=== PATIENT | female | born 1985 | race African-American/Black ===

== ENCOUNTER 2018-05-18 07:57 | Emergency (ER) | payer MEDICAID ==
[~2018-05-18] VITALS: Ht 154.9 cm; Wt 52.2 kg
[~2018-05-18 07:57] MED LIST: CYAN100T3 GT; HYDR2TAB35 PO; INFL100V IV; PRED20TA GT
--- NOTE | 2018-05-18 08:28 | NUR ---
initial contact with pt no distress - c/o irritation burning senstion colostomy bag - light bloody output small amount waiting for MD andrew
--- NOTE | 2018-05-18 08:58 | NUR ---
ED MD ready to see pt - but unable to find pt in room and anywhere in ED at this time
[2018-05-18 09:21] VITALS: BP 105/86
--- NOTE | 2018-05-18 09:23 | NUR ---
Pt eloped from ER after triage and prior to being seen
== END 2018-05-18 09:24 | disposition home or self-care (01) ==
LOC: ER 08:03
DX: Z53.21 Procedure and treatment not carried out due to patient leaving prior to being seen by health care provider (principal); Z93.3 Colostomy status; J45.909 Unspecified asthma, uncomplicated
CPT/HCPCS: A4606; Z7610

== ENCOUNTER 2022-03-06 11:47 | Emergency (ER) | payer MEDICAID, OTHER ==
[~2022-03-06] VITALS: Ht 154.9 cm; Wt 54.4 kg
[~2022-03-06 11:47] MED LIST changes: -CYAN100T3 GT; +CYAN100T44 GT
[2022-03-06 12:14] VITALS: BP 105/63
--- NOTE | 2022-03-06 12:22 | NUR ---
BIB SELF, REQUESTING NEED FOR A COLOSTOMY BAG, PT TO BE ASSESSED AND EVALUATED
== END 2022-03-06 12:29 | disposition home or self-care (01) ==
LOC: ER 11:47
DX: K94.03 Colostomy malfunction (principal); J45.909 Unspecified asthma, uncomplicated; Z88.2 Allergy status to sulfonamides; Z88.8 Allergy status to other drugs, medicaments and biological substances; Z79.899 Other long term (current) drug therapy

== ENCOUNTER 2022-04-11 15:40 | Inpatient (IN) | payer OTHER ==
[~2022-04-11] VITALS: Ht 160 cm; Wt 55.3 kg
--- NOTE | 2022-04-11 15:40 | NUR ---
BIB [facility], RUNNING AROUND NAKED IN A STREET, TOLD GILBERT THAT SHE NEED A COLOSTOMY BAG. PLACED ON BED, COOPERATIVE, RESTLESS.
[2022-04-11] MEDS ORDERED: OLANZAPINE 10 MG VIAL IM ONE ×3 (15:57→17:30)
[2022-04-11 16:31] LABS: BILIRUBIN,URINE 1+ (NEGATIVE); COLOR,URINE YELLOW (YELLOW); LEUKOCYTE ESTERASE ,URINE 1+ (NEGATIVE); NITRITE, URINE NEGATIVE (NEGATIVE); PH,URINE 5.5 (5.0-8.0); PROTEIN,URINE 2+ mg/dl (NEGATIVE); UGLUCOSE NEGATIVE (NEGATIVE); UROBILINOGEN,URINE 0.2 EU/dL (0.2)
[2022-04-11 16:32] LABS: BASOPHILS # (AUTO) 0.1 K/uL (0.0-0.2); BASOPHILS % (AUTO) 0.8 % (0.0-2.0); EOSINOPHILS % (AUTO) 0.5 % (0.0-6.0); LYMPHOCYTES # (AUTO) 1.5 K/uL (0.8-4.8); LYMPHOCYTES % (AUTO) 15.9 % (20.0-44.0); MEAN CORPUSCULAR HGB CONC 28 g/dl (31.0-36.0); MEAN CORPUSCULAR VOLUME 54 fL (82-100); MONOCYTES # (AUTO) 0.9 K/uL (0.1-1.30); NEUTROPHILS # (AUTO) 6.7 K/uL (1.8-8.9); NEUTROPHILS % (AUTO) 72.8 % (43.0-81.0); PLATELET COUNT (AUTO) 601 K/uL (150-450); RED BLOOD CELL COUNT(AUTO) 3.29 MIL/uL (4.0-5.2); WHITE BLOOD COUNT (AUTO) 9.2 K/uL (4.3-11.0)
[2022-04-11 16:34] LABS: HEMATOCRIT 18 % (33-45); HEMOGLOBIN 4.9 g/dL (11.5-14.8)
[2022-04-11 16:36] LABS: BACTERIA,URINE Few /HPF (None Seen); COARSE GRANULAR CASTS,URINE Few /LPF (None Seen); SQUAMOUS EPITHELIAL CELL,UR Few /HPF (None Seen)
[2022-04-11 16:53] LABS: ALANINE AMINOTRANSFERASE 21 U/L (12-78); ALBUMIN 3.3 g/dL (3.4-5.0); ALCOHOL, BLOOD < 3 mg/dL (0-0); ALKALINE PHOSPHATASE 130 U/L (46-116); ASPARTATE AMINOTRANSFERASE 37 U/L (15-37); BILIRUBIN,DIRECT 0.2 mg/dL (0.0-0.2); BILIRUBIN,TOTAL 0.5 mg/dL (0.2-1.0); CALCIUM, SERUM 8.5 mg/dL (8.5-10.1); CARBON DIOXIDE 27 mmol/L (21-32); CHLORIDE 92 mmol/L (98-107); CREATININE 2.3 mg/dL (0.6-1.3); GLUCOSE 90 mg/dL (74-106); POTASSIUM 3.8 mmol/L (3.5-5.1); SODIUM SERUM 132 mmol/L (136-145); UREA NITROGEN, BLOOD 26 mg/dL (7-18)
--- NOTE | 2022-04-11 16:53 | NUR ---
COVID TEST COLLECTED AND SENT
[2022-04-11 16:55] LABS: ACETAMINOPHEN 0 ug/ml (10-30)
[2022-04-11] MEDS ORDERED: PANTOPRAZOLE 80 MG in IV NS 0.9% 100 ML IV ONE (17:00)
--- NOTE | 2022-04-11 17:05 | NUR ---
[employer] WORK[employer] AT BEDSIDE
[2022-04-11] MEDS ORDERED: METH10SO PO (17:17)
--- NOTE | 2022-04-11 17:52 | NUR ---
MOVE SHEET SUBMITTED.
[2022-04-11] MEDS ORDERED: MAGNESIUM HYDROXIDE 30 ML UDC PO PRN (19:00)
[2022-04-11] MEDS ORDERED: ACETAMINOPHEN 325 MG TABLET PO PRN (19:00)
[2022-04-11] MEDS ORDERED: Z GUARD REMEDY 4 OZ OINT TP PRN (19:00)
[2022-04-11] MEDS ORDERED: MAG HYDROX/AL HYDROX/SIMETH 30 ML UDC PO PRN (19:00)
[2022-04-11] MEDS ORDERED: ONDANSETRON HCL/PF 4 MG/2 ML VIAL IVP PRN (19:00)
--- NOTE | 2022-04-11 19:15 | NUR ---
COMMENCED ON BLOOD TRANSFUSION A POS OVER 4HRS. TEMP- 98.7, BP- 128/89, MO- 97
[2022-04-11 20:08] LABS: BAND % (MANUAL) 8 % (0.0-5.0); BASOPHILS % (MANUAL) 0 % (0.0-2.0); EOSINOPHILS % (MANUAL) 2 % (0-4); LYMPHOCYTES % (MANUAL) 18 % (16-48); MONOCYTES % (MANUAL) 10 % (0-11.0); NEUTROPHILS % (MANUAL) 62 (42-76)
--- NOTE | 2022-04-11 20:15 | NUR ---
REP[ORT GIVEN TO [facility]EN[facility] OGDEN ROOM 110 FOR KERRI
--- NOTE | 2022-04-11 20:29 | NUR ---
TRANSFERRED TO 110 UNDER ACLS
--- NOTE | 2022-04-11 21:17 | NUR ---
RN OPENING NOTE PT BIB ED. PT IS A&OX4 AND HYPERACTIVE AND NEEDS REPEATED VERBAL INSTRUCTION TO FOLLOW COMMANDS. PT STATED THAT SHE WOULD LIKE TO PUT THE COLOSTOMY BAG ON HERSELF WITH NURSE SUPERVISION. LINENS WERE CHANGED. BED LOCKED AND AT LOWEST LEVEL WITH 2 RAILS UP. CALL LIGHT WITHIN REACH. BED ALARM ON. EDUCATED PT ON USING CALL LIGHT TO USE RESTROOM.
--- NOTE | 2022-04-11 21:20 | NUR ---
RECEIVED PT FROM ER WITH BLOOD TRANSFUSION ONGOING, PATIENT TOLERATED WELL, NO S/S OF ANY ALLERGIC REACTION AT THIS TIME, VS 124, 68, 98.9, 83, 18.
--- NOTE | 2022-04-11 21:23 | NUR ---
METHADONE FOUND IN PT'S POSSESSION. STATES THAT SHE TAKES 45 MG QD AND HAS TAKEN HER DAILY DOSE. PROVIDER AWARE.
--- NOTE | 2022-04-11 21:50 | NUR ---
BLOOD TRANSFUSION ONGOING VS 118/59, 98.1, 86, 20.
[2022-04-11 22:00] VITALS: BP 124/68
[2022-04-11] MEDS ORDERED: ZOLPIDEM TARTRATE 5 MG TABLET PO PRN (22:00)
[2022-04-11] MEDS: IV 1/2NS 1000 ML 1,000 ML IV SCH (22:15)
--- NOTE | 2022-04-11 22:30 | NUR ---
BLOOD INFUSION DONE AT THIS TIME PATIENT TOLERATED WELL, NO S/S OF ANY ALLERGIC REACTION VS 110/59, 85, 98.0, 20. WILL CONTINUE TO MONITOR CLOSELY.
--- NOTE | 2022-04-11 22:44 | NUR ---
MD AWARE OF HGB LEVEL OF 4.9. 1 PRBCS INFUSED. DISCUSSED WITH MD FOR 2ND BLOOD TRANSFUSION AND CBC. WAS TOLD PER MD TO HOLD OFF AND ADDRESS IN THE AM.
[2022-04-12] VITALS: BP 105/64
[2022-04-12] MEDS: IV 1/2NS 1000 ML 1,000 ML IV SCH (03:00)
[2022-04-12 04:00] VITALS: BP 105/72
--- NOTE | 2022-04-12 06:42 | NUR ---
RN CLOSING NOTE PT AWAKE AND ALERT WATCHING TV. GIVEN APPLE JUICE PER PT REQUEST. SKIN IS WARM AND DRY. RESPIRATIONS EVEN AND UNLABORED ON RA. NO ACUTE SIGNS OF DISTRESS. BED IS LOCKED AT LOWEST POSITION. X2 SIDE RAILS UP, CALL LIGHT WITHIN REACH AND BED ALARM ON.
[2022-04-12 07:22] LABS: BASOPHILS % (AUTO) 0.7 % (0.0-2.0); EOSINOPHILS % (AUTO) 2.5 % (0.0-6.0); HEMATOCRIT 24 % (33-45); LYMPHOCYTES # (AUTO) 1.4 K/uL (0.8-4.8); LYMPHOCYTES % (AUTO) 26.6 % (20.0-44.0); MEAN CORPUSCULAR HGB CONC 28 g/dl (31.0-36.0); MEAN CORPUSCULAR VOLUME 60 fL (82-100); MONOCYTES # (AUTO) 0.5 K/uL (0.1-1.30); MONOCYTES % (AUTO) 9.9 % (2.0-12.0); NEUTROPHILS # (AUTO) 3.1 K/uL (1.8-8.9); NEUTROPHILS % (AUTO) 60.3 % (43.0-81.0); PLATELET COUNT (AUTO) 500 K/uL (150-450); RED BLOOD CELL COUNT(AUTO) 4.06 MIL/uL (4.0-5.2); WHITE BLOOD COUNT (AUTO) 5.1 K/uL (4.3-11.0)
[2022-04-12 08:03] LABS: HEMOGLOBIN 6.9 g/dL (11.5-14.8)
[2022-04-12 08:22] LABS: CALCIUM, SERUM 8.4 mg/dL (8.5-10.1); CREATININE 1.6 mg/dL (0.6-1.3); MAGNESIUM 2.1 mg/dL (1.8-2.4); PHOSPHORUS 3.3 mg/dL (2.5-4.9); POTASSIUM 3.1 mmol/L (3.5-5.1)
--- NOTE | 2022-04-12 08:44 | NUR ---
RN NOTE PT ELOPED DURING NURSES MANDATORY MEETING. PT IV ACCESS WAS NOT D/C. RN TEXTILE STYLIST MADE AWARE. PT HGB LVL 6.9, PMD MADE AWARE OF RESULT AND ELOPEMENT INCIDENT. PLACED CALL TO [employer] AND LEFT MSG.
[2022-04-12] MEDS ORDERED: PANTOPRAZOLE 40 MG VIAL IV SCH (09:00)
[2022-04-12] MEDS ORDERED: METHADONE PO SCH (09:00)
--- NOTE | 2022-04-12 13:37 | NUR ---
PLACED CALL TO [employer] FOR F/U, UNABLE TO REACH AND WILL LEAVE VOICEMAIL.
[2022-04-12 18:34] LABS: EOSINOPHILS % (MANUAL) 1 % (0-4); LYMPHOCYTES % (MANUAL) 28 % (16-48); MONOCYTES % (MANUAL) 6 % (0-11.0); NEUTROPHILS % (MANUAL) 65 (42-76)
== END 2022-04-12 07:00 | disposition left against medical advice (07) | DRG 663 ==
LOC: ER 15:42 → TELE1 20:21
PROVIDERS: ADMIT Student in an Organized Health Care Education/Training Program; ATTEND Student in an Organized Health Care Education/Training Program
PROC: 30233N1 Transfusion of Nonautologous Red Blood Cells into Peripheral Vein, Percutaneous Approach (ICD-10-PCS; principal; 2022-04-11)
PROC: 05H933Z Insertion of Infusion Device into Right Brachial Vein, Percutaneous Approach (ICD-10-PCS; 2022-04-11)
DX: D64.9 Anemia, unspecified (principal); N17.0 Acute kidney failure with tubular necrosis; G93.40 Encephalopathy, unspecified; E44.1 Mild protein-calorie malnutrition; E87.1 Hypo-osmolality and hyponatremia; Z93.3 Colostomy status; D75.839 Thrombocytosis, unspecified; K50.90 Crohn's disease, unspecified, without complications; E88.09 Other disorders of plasma-protein metabolism, not elsewhere classified; F29 Unspecified psychosis not due to a substance or known physiological condition; J45.909 Unspecified asthma, uncomplicated; Z20.822 Contact with and (suspected) exposure to COVID-19; F15.90 Other stimulant use, unspecified, uncomplicated; F14.90 Cocaine use, unspecified, uncomplicated
CPT/HCPCS: 36415; 71045-TC; 80048-TC; 80076-TC; 81001; 83735-TC; 84100-TC; 85025-TC; 85730-TC; 86850-TC; 87081-TC; 87086-TC; C9113; C9803; G0378; G0480; J3490; J7030; J7040; P9016

== ENCOUNTER 2023-01-01 02:49 | Emergency (ER) | payer OTHER ==
[~2023-01-01] VITALS: Ht 154.9 cm; Wt 54.4 kg
[~2023-01-01 02:49] MED LIST changes: -CYAN100T44 GT; -HYDR2TAB35 PO; -INFL100V IV; +METH10SO PO; -PRED20TA GT
[2023-01-01] MEDS ORDERED: CLIN300C12 PO (03:12)
[2023-01-01 03:31] VITALS: BP 112/64; TEMP 98; O2SAT 98
== END 2023-01-01 03:32 | disposition home or self-care (01) ==
LOC: ER 02:55
DX: L03.116 Cellulitis of left lower limb (principal); J45.909 Unspecified asthma, uncomplicated; K50.90 Crohn's disease, unspecified, without complications; Z79.899 Other long term (current) drug therapy; Z98.890 Other specified postprocedural states; Z60.2 Problems related to living alone; Z88.2 Allergy status to sulfonamides; Z88.5 Allergy status to narcotic agent; Z88.1 Allergy status to other antibiotic agents

== ENCOUNTER 2023-01-30 16:33 | Emergency (ER) | payer OTHER ==
[~2023-01-30] VITALS: Ht 149.9 cm; Wt 47.6 kg
[~2023-01-30 16:33] MED LIST changes: +CLIN300C12 PO
[2023-01-30 17:30] VITALS: BP 128/71; TEMP 98.5; O2SAT 100
== END 2023-01-30 17:31 | disposition home or self-care (01) ==
LOC: ER 16:35
DX: Z02.89 Encounter for other administrative examinations (principal); J45.909 Unspecified asthma, uncomplicated; K50.90 Crohn's disease, unspecified, without complications; Z79.899 Other long term (current) drug therapy; Z98.890 Other specified postprocedural states; Z88.5 Allergy status to narcotic agent; Z88.2 Allergy status to sulfonamides; Z88.1 Allergy status to other antibiotic agents; Z60.2 Problems related to living alone

== ENCOUNTER 2023-03-12 16:00 | Emergency (ER) | payer OTHER ==
[~2023-03-12] VITALS: Ht 149.9 cm; Wt 47.6 kg
[2023-03-12 17:41] VITALS: BP 92/65; TEMP 98.3; O2SAT 98
== END 2023-03-12 17:30 ==
LOC: ER 16:15
DX: Z43.3 Encounter for attention to colostomy (principal); J45.909 Unspecified asthma, uncomplicated; Z98.890 Other specified postprocedural states; Z60.2 Problems related to living alone; Z88.1 Allergy status to other antibiotic agents; Z88.5 Allergy status to narcotic agent; Z79.899 Other long term (current) drug therapy

== ENCOUNTER 2023-03-13 02:45 | Emergency (ER) | payer OTHER ==
[~2023-03-13] VITALS: Ht 162.6 cm; Wt 45.4 kg
[2023-03-13 02:49] VITALS: BP 142/74; TEMP 98
[2023-03-13] MEDS ORDERED: ACETAMINOPHEN ES 500 MG TABLET ONE (02:53)
[2023-03-13] MEDS ORDERED: CLONIDINE HCL 0.1 MG TABLET ONE (02:53)
[2023-03-13] MEDS ORDERED: BUPRENORPHINE HCL 2 MG TAB.SUBL SL ONE ×2 (03:00→03:05)
[2023-03-13] MEDS ORDERED: ACETAMINOPHEN 325 MG TABLET PO ONE (03:00)
[2023-03-13] MEDS ORDERED: CLONIDINE HCL 0.1 MG TABLET PO ONE (03:00)
[2023-03-13 03:15] VITALS: O2SAT 98
== END 2023-03-13 03:19 ==
LOC: ER 02:47
DX: K94.09 Other complications of colostomy (principal); F11.23 Opioid dependence with withdrawal; J45.909 Unspecified asthma, uncomplicated; Z79.899 Other long term (current) drug therapy; Z60.2 Problems related to living alone; Z88.2 Allergy status to sulfonamides; Z88.5 Allergy status to narcotic agent; Z88.1 Allergy status to other antibiotic agents